=== PATIENT | male | born 1935 | race Caucasian/White ===

== ENCOUNTER 2016-12-07 20:18 | Inpatient (IN) | payer OTHER ==
[~2016-12-07] VITALS: Ht 170.2 cm; Wt 64.3 kg
[2016-12-07] MEDS ORDERED: SODIUM CHLORIDE 0.9% 1,000 ML IV ONE ×2 (20:25→21:29)
[2016-12-07] MEDS ORDERED: ONDANSETRON 2MG/ML, 2ML IVPush ONE (20:30)
[2016-12-07] MEDS ORDERED: PLEASE ENTER ALLERGIES MC SCH ×2 (20:30)
[2016-12-07] MEDS ORDERED: SODIUM CHLORIDE FLUSH 10ML SYR IVF ONE (20:30)
[2016-12-07] MEDS ORDERED: SODIUM CHLORIDE 0.9% 1,000ML IVBOLUS ONE (20:30)
[2016-12-07] MEDS ORDERED: ONDANSETRON 2MG/ML, 2ML ONE (20:33)
[2016-12-07 20:44] LABS: HEMATOCRIT 49.5 % (39.2-51.8); HEMOGLOBIN 16.5 g/dL (13.7-18.0)
[2016-12-07 20:54] LABS: ASPARTATE AMINO TRANSFERASE 16 U/L (15-37); BLOOD UREA NITROGEN 19 mg/dL (7-18)
[2016-12-07] MEDS ORDERED: LOSA25TA5 PO (20:56)
[2016-12-07] MEDS ORDERED: ASPI-496 PO (20:56)
[2016-12-07 21:00] LABS: IS PT STATUS REG ER OR PRE ER? YES
[2016-12-07] MEDS ORDERED: BACITRACIN ZINC OINT 500U/GM, 0.9 GM ONE (21:14)
[2016-12-07] MEDS ORDERED: SODIUM CHLORIDE FLUSH 10ML SYR IVF PRN (21:30)
[2016-12-07] MEDS ORDERED: POTASSIUM CHLORIDE 20 MEQ TAB.ER.PRT PO ONE (22:00)
[2016-12-07] MEDS ORDERED: CEFAZOLIN PMX 1GM/50ML 50 ML IVPB ONE (22:00)
[2016-12-07] MEDS ORDERED: DOCUSATE 100 MG CAPSULE PO PRN (22:30)
[2016-12-07] MEDS ORDERED: ONDANSETRON ODT 4 MG PO PRN (22:30)
[2016-12-07] MEDS ORDERED: TEMAZEPAM 15 MG CAPSULE PO PRN (22:30)
[2016-12-07] MEDS ORDERED: HYDROcodone/APAP 5/325 TABLET PO PRN (22:30)
[2016-12-07 22:46] VITALS: BP 149/75
[2016-12-07] MEDS: NICOTINE 14MG/24 HR PATCH.TD24 TD SCH (23:29)
[2016-12-07] MEDS: SODIUM CHLORIDE 0.9% 1,000 ML IV SCH (23:30)
[2016-12-07] MEDS: AMLODIPINE 5 MG TABLET PO SCH (23:30)
[2016-12-08 01:42] VITALS: BP 132/64
[2016-12-08] MEDS: SODIUM CHLORIDE 0.9% 1,000 ML IV SCH ×4 (06:18→16:46)
[2016-12-08] MEDS: ACETAMINOPHEN 325 MG TABLET PO PRN ×3 (06:27→21:20)
[2016-12-08 08:04] VITALS: BP 146/68
[2016-12-08] MEDS: AMLODIPINE 5 MG TABLET PO SCH (08:06)
[2016-12-08] MEDS ORDERED: CEFAZOLIN PMX 1GM/50ML 50 ML ONE (09:23)
[2016-12-08] MEDS ORDERED: FENTANYL PF 100 MCG/2ML ONE (09:23)
[2016-12-08] MEDS ORDERED: LIDOCAINE 2%, 20ML ONE (09:23)
[2016-12-08] MEDS ORDERED: MIDAZOLAM 1 MG/ML, 5ML ONE (09:23)
[2016-12-08] MEDS ORDERED: CEFAZOLIN 1,000 MG ONE (09:24)
[2016-12-08] MEDS ORDERED: ZOLPIDEM 5MG TABLET PO PRN (10:30)
[2016-12-08] MEDS ORDERED: HYDROcodone/APAP 5/325 TABLET PO PRN (10:30)
[2016-12-08 12:02] LABS: BLOOD UREA NITROGEN 13 mg/dL (7-18); HEMATOCRIT 45.5 % (39.2-51.8); HEMOGLOBIN 15.1 g/dL (13.7-18.0)
[2016-12-08 13:12] VITALS: BP 119/62
[2016-12-08] MEDS: CEFAZOLIN PMX 1GM/50ML 50 ML IVPB SCH (16:46)
[2016-12-08 19:59] VITALS: BP 124/72
[2016-12-08] MEDS: NICOTINE 14MG/24 HR PATCH.TD24 TD SCH (21:20)
[2016-12-08] MEDS: SODIUM CHLORIDE FLUSH 10ML SYR IVF SCH (21:21)
[2016-12-09] MEDS: SODIUM CHLORIDE 0.9% 1,000 ML IV SCH ×3 (01:01→10:00)
[2016-12-09 01:31] VITALS: BP 155/78
[2016-12-09] MEDS: CEFAZOLIN PMX 1GM/50ML 50 ML IVPB SCH (02:09)
[2016-12-09 07:35] VITALS: BP 177/82
[2016-12-09] MEDS: AMLODIPINE 5 MG TABLET PO SCH (08:31)
[2016-12-09] MEDS: SODIUM CHLORIDE FLUSH 10ML SYR IVF SCH (08:31)
[2016-12-09] MEDS: ACETAMINOPHEN 325 MG TABLET PO PRN (08:45)
[2016-12-09] MEDS ORDERED: ATOR20TA9 PO (11:43)
[2016-12-09] MEDS ORDERED: AMLO5TAB2 PO (11:43)
== END 2016-12-09 14:14 | disposition home or self-care (01) | DRG 242 ==
LOC: ED 21:31 → EDIP 21:45 → 5SO 22:34 → DCLOUNGE 12-09 13:50
PROVIDERS: ADMIT Hospitalist; ATTEND Hospitalist
PROC: 02H63JZ Insertion of Pacemaker Lead into Right Atrium, Percutaneous Approach (ICD-10-PCS; principal; 2016-12-08)
PROC: 02HK3JZ Insertion of Pacemaker Lead into Right Ventricle, Percutaneous Approach (ICD-10-PCS; 2016-12-08)
PROC: 0JH606Z Insertion of Pacemaker, Dual Chamber into Chest Subcutaneous Tissue and Fascia, Open Approach (ICD-10-PCS; 2016-12-08)
DX: I44.1 Atrioventricular block, second degree (principal); N17.0 Acute kidney failure with tubular necrosis; I11.9 Hypertensive heart disease without heart failure; I10 Essential (primary) hypertension; H35.30 Unspecified macular degeneration; S01.91XA Laceration without foreign body of unspecified part of head, initial encounter; W07.XXXA Fall from chair, initial encounter; S09.90XA Unspecified injury of head, initial encounter; I65.21 Occlusion and stenosis of right carotid artery; J44.9 Chronic obstructive pulmonary disease, unspecified; E74.39 Other disorders of intestinal carbohydrate absorption; F17.210 Nicotine dependence, cigarettes, uncomplicated; I45.10 Unspecified right bundle-branch block; I48.91 Unspecified atrial fibrillation; I73.9 Peripheral vascular disease, unspecified; R32 Unspecified urinary incontinence; Z83.3 Family history of diabetes mellitus; Z95.0 Presence of cardiac pacemaker; Y93.89 Activity, other specified; Y99.8 Other external cause status
CPT/HCPCS: 33208; 36415; 70450; 71010; 80048; 80053; 81003; 83036; 83605; 83880; 84439; 84443; 84481; 84484; 85025; 85610; 85730; 93005; 93306; 93880; 96361; 96374; 99156; 99157; C1779; C1785; C1892; J0690; J2250; J2405; J3010; J3490; J7030

== ENCOUNTER → 2016-12-17 | Outpatient (CLI) | payer OTHER ==
[~2016-12-17] MED LIST: AMLO5TAB2 PO; ASPI-496 PO; ATOR-2 PO; ATOR20TA9 PO; LOSA25TA5 PO; OMEP-110 PO; VIT1TABL32 PO
== END | disposition home or self-care (01) ==
LOC: CFH 11:08
PROVIDERS: ATTEND Internal Medicine Cardiovascular Disease
DX: Z95.0 Presence of cardiac pacemaker (principal)
CPT/HCPCS: 71020

== ENCOUNTER 2016-12-19 09:11 | Observation (INO) | payer OTHER ==
[~2016-12-19] VITALS: Ht 170.2 cm; Wt 66.0 kg
[~2016-12-19 09:11] MED LIST changes: -ATOR-2 PO; -OMEP-110 PO; -VIT1TABL32 PO
[2016-12-19] MEDS: SODIUM CHLORIDE 0.9% 1,000 ML IV SCH ×2 (12:09→20:09)
[2016-12-19 12:17] VITALS: BP 149/80
[2016-12-19] MEDS ORDERED: VIT1TABL32 PO (12:21)
[2016-12-19] MEDS ORDERED: OMEP-110 PO (12:21)
[2016-12-19] MEDS ORDERED: AMLO5TAB2 PO (12:27)
[2016-12-19] MEDS ORDERED: ATOR-2 PO (12:27)
[2016-12-19 12:28] LABS: HEMATOCRIT 49.3 % (39.2-51.8); HEMOGLOBIN 16.7 g/dL (13.7-18.0)
[2016-12-19] MEDS ORDERED: CEFAZOLIN PMX 1GM/50ML 50 ML IVPB ONE (12:30)
[2016-12-19 12:38] LABS: BLOOD UREA NITROGEN 15 mg/dL (7-18)
[2016-12-19] MEDS ORDERED: CEFAZOLIN 1,000 MG ONE ×2 (12:46→12:47)
[2016-12-19] MEDS ORDERED: FENTANYL PF 100 MCG/2ML ONE (12:46)
[2016-12-19] MEDS ORDERED: MIDAZOLAM 1 MG/ML, 5ML ONE (12:46)
[2016-12-19] MEDS ORDERED: CEFAZOLIN PMX 1GM/50ML 50 ML ONE (12:46)
[2016-12-19] MEDS ORDERED: LIDOCAINE 2%, 20ML ONE (12:46)
[2016-12-19] MEDS ORDERED: HYDROcodone/APAP 5/325 TABLET PO PRN (14:00)
[2016-12-19 14:15] VITALS: BP 133/75
[2016-12-19] MEDS ORDERED: CEFAZOLIN PMX 1GM/50ML 50 ML IVPB SCH (16:00)
[2016-12-19 20:56] VITALS: BP 143/79
[2016-12-19] MEDS: SODIUM CHLORIDE FLUSH 10ML SYR IVF SCH (20:59)
[2016-12-19] MEDS ORDERED: ATORVASTATIN 20 MG TABLET PO SCH (21:00)
[2016-12-19] MEDS ORDERED: ASPIRIN 81 MG TABLET EC PO SCH (21:00)
[2016-12-19] MEDS ORDERED: ATORVASTATIN 80 MG TABLET PO SCH (21:00)
[2016-12-19] MEDS: CEFAZOLIN PMX 1GM/50ML 50 ML IVPB SCH (21:04)
[2016-12-20] VITALS: BP 132/74
[2016-12-20] MEDS: SODIUM CHLORIDE 0.9% 1,000 ML IV SCH ×2 (01:37→09:08)
[2016-12-20] MEDS: CEFAZOLIN PMX 1GM/50ML 50 ML IVPB SCH (08:10)
[2016-12-20] MEDS ORDERED: OMEPRAZOLE 20 MG CAPSULE.DR PO SCH (09:00)
[2016-12-20] MEDS ORDERED: AMLODIPINE 5 MG TABLET PO SCH (09:00)
[2016-12-20] MEDS: SODIUM CHLORIDE FLUSH 10ML SYR IVF SCH (09:07)
[2016-12-20 09:09] VITALS: BP 152/78
[2016-12-21] MEDS ORDERED: MULTIVITAMINS/MINERALS TABLET PO SCH (09:00)
== END 2016-12-20 12:36 | disposition home or self-care (01) ==
LOC: CACL 09:11 → ORIP 13:36 → 5SO 14:27
PROVIDERS: ADMIT Internal Medicine Cardiovascular Disease; ATTEND Internal Medicine Cardiovascular Disease
DX: T82.120A Displacement of cardiac electrode, initial encounter (principal); I44.1 Atrioventricular block, second degree; J44.9 Chronic obstructive pulmonary disease, unspecified; I10 Essential (primary) hypertension; Y71.2 Prosthetic and other implants, materials and accessory cardiovascular devices associated with adverse incidents; Y92.89 Other specified places as the place of occurrence of the external cause
CPT/HCPCS: 33215; 36415; 71010; 80048; 85025; 85610; 96365; 96375; 99156; G0378; J0690; J2250; J3010; J3490

== ENCOUNTER 2017-06-09 13:45 | Emergency (ER) | payer OTHER ==
[~2017-06-09] VITALS: Ht 170.2 cm; Wt 63.7 kg
[~2017-06-09 13:45] MED LIST changes: +ATOR-2 PO; +OMEP-110 PO; +VIT1TABL32 PO
[2017-06-09 15:29] LABS: BASOPHILS # (AUTO) 0.05 x10^3/uL (0-0.1); BASOPHILS % (AUTO) 1 % (0-1); EOSINOPHILS # (AUTO) 0.24 x10^3/uL (0-0.4); EOSINOPHILS % (AUTO) 4 % (1-7); LYMPHOCYTES # (AUTO) 0.88 x10^3/uL (1-3.4); LYMPHOCYTES % (AUTO) 14 % (22-44); MD NO; MEAN CORPUSCULAR HGB CONC 33.7 g/dL (33.2-36.2); MEAN CORPUSCULAR VOLUME 94.8 fL (81-97); MEAN PLATELET VOLUME 9.3 fL (7.4-10.4); MONOCYTES # (AUTO) 0.52 x10^3/uL (0.2-0.8); MONOCYTES % (AUTO) 8 % (2-9); NEUTROPHILS # (AUTO) 4.46 x10^3/uL (1.8-6.8); NEUTROPHILS % (AUTO) 73 % (42-75); PLATELET COUNT 144 x10^3/uL (130-400); RED BLOOD COUNT 4.84 x10^6/uL (4.38-5.82); RED CELL DISTRIBUTION WIDTH 14.1 % (9.4-14.8)
[2017-06-09 15:32] LABS: ALBUMIN 3.6 g/dL (3.4-5.0); ANION GAP 6 mmol/L (5-15); CALCIUM 9.2 mg/dL (8.5-10.1); CHLORIDE 108 mmol/L (98-107); CREATININE 1.36 mg/dL (0.7-1.3)
[2017-06-09 15:37] LABS: MICROSCOPIC AUTO
[2017-06-09 15:38] LABS: CULTURE INDICATED? NO
[2017-06-09] MEDS ORDERED: SODIUM CHLORIDE FLUSH 10ML SYR IVF ONE (17:00)
[2017-06-09] MEDS ORDERED: OMNIPAQUE 350 MG/ML, 100ML BOTTLE ONE (17:50)
[2017-06-09 18:11] VITALS: BP 159/81
== END 2017-06-09 19:10 | disposition home or self-care (01) ==
LOC: ED 18:46
DX: M54.6 Pain in thoracic spine (principal); Z21 Asymptomatic human immunodeficiency virus [HIV] infection status; E78.00 Pure hypercholesterolemia, unspecified; I10 Essential (primary) hypertension; K21.9 Gastro-esophageal reflux disease without esophagitis; Z95.0 Presence of cardiac pacemaker
CPT/HCPCS: 36415; 71046; 71275; 74175; 80048; 81001; 82040; 85025; 93005; 99285; Q9967

== ENCOUNTER 2017-06-22 11:04 | Observation (INO) | payer OTHER ==
[~2017-06-22] VITALS: Ht 170.2 cm; Wt 61.0 kg
[2017-06-22] MEDS ORDERED: METOPROLOL 1 MG/ML, 5ML IVPush PRN (12:00)
[2017-06-22] MEDS ORDERED: SODIUM CHLORIDE FLUSH 10ML SYR IVF ONE (12:00)
[2017-06-22] MEDS ORDERED: ASPIRIN 81 MG TABLET CHEW PO ONE (12:00)
[2017-06-22 12:22] LABS: BASOPHILS # (AUTO) 0.02 x10^3/uL (0-0.1); BASOPHILS % (AUTO) 0 % (0-1); EOSINOPHILS # (AUTO) 0.19 x10^3/uL (0-0.4); EOSINOPHILS % (AUTO) 3 % (1-7); LYMPHOCYTES # (AUTO) 0.83 x10^3/uL (1-3.4); LYMPHOCYTES % (AUTO) 13 % (22-44); MD NO; MEAN CORPUSCULAR HEMOGLOBIN 31.8 pg (27.5-34.5); MEAN CORPUSCULAR HGB CONC 33.4 g/dL (33.2-36.2); MEAN CORPUSCULAR VOLUME 95.1 fL (81-97); MEAN PLATELET VOLUME 8.7 fL (7.4-10.4); MONOCYTES # (AUTO) 0.43 x10^3/uL (0.2-0.8); MONOCYTES % (AUTO) 7 % (2-9); NEUTROPHILS # (AUTO) 4.91 x10^3/uL (1.8-6.8); NEUTROPHILS % (AUTO) 77 % (42-75); PLATELET COUNT 155 x10^3/uL (130-400); RED BLOOD COUNT 5.12 x10^6/uL (4.38-5.82)
[2017-06-22 12:26] LABS: ANION GAP 6 mmol/L (5-15); CALCIUM 9.4 mg/dL (8.5-10.1); CHLORIDE 107 mmol/L (98-107)
[2017-06-22 12:31] LABS: ALANINE AMINOTRANSFERASE 15 U/L (12-78); ALKALINE PHOSPHATASE 106 U/L (45-117); CREATININE 1.22 mg/dL (0.7-1.3); TOTAL PROTEIN 7.4 g/dL (6.4-8.2); TROPONIN I < 0.015 ng/mL (0.000-0.045)
[2017-06-22] MEDS ORDERED: METOPROLOL 1 MG/ML, 5ML ONE (12:42)
[2017-06-22] MEDS ORDERED: ASPIRIN 81 MG TABLET CHEW ONE (12:43)
[2017-06-22] MEDS ORDERED: BISACODYL 10 MG SUPP PR PRN (16:30)
[2017-06-22] MEDS ORDERED: ASPIRIN 325 MG TABLET EC PO ONE (16:30)
[2017-06-22] MEDS ORDERED: ENOXAPARIN 40 MG/0.4 ML SQ SCH (16:30)
[2017-06-22] MEDS ORDERED: NITROGLYCERIN 0.4 MG BOTTLE (25 TABS) SL PRN (16:30)
[2017-06-22] MEDS ORDERED: ONDANSETRON 2MG/ML, 2ML IVPush PRN (16:30)
[2017-06-22] MEDS ORDERED: ACETAMINOPHEN 325 MG TABLET PO PRN (16:30)
[2017-06-22] MEDS ORDERED: ONDANSETRON ODT 4 MG PO PRN (16:30)
[2017-06-22] MEDS ORDERED: NICOTINE 21 MG/24 HR PATCH.TD24 TD SCH (16:30)
[2017-06-22] MEDS ORDERED: LABETALOL 5MG/ML, 20ML IVPush PRN (16:30)
[2017-06-22] MEDS ORDERED: TRAZODONE 50MG TABLET PO PRN (16:30)
[2017-06-22] MEDS ORDERED: POLYETHYLENE GLYCOL 17 GM PACKET PO PRN (16:30)
[2017-06-22 17:06] VITALS: BP 168/84
[2017-06-22 17:42] LABS: FREE T4 (FREE THYROXINE) 1.06 ng/dL (0.76-1.46); TROPONIN I < 0.015 ng/mL (0.000-0.045)
[2017-06-22 19:55] VITALS: BP 168/84
[2017-06-22] MEDS ORDERED: ASPIRIN 81 MG TABLET EC PO SCH (21:00)
[2017-06-22] MEDS ORDERED: ATORVASTATIN 20 MG TABLET PO SCH (21:00)
[2017-06-22 22:20] LABS: TROPONIN I < 0.015 ng/mL (0.000-0.045)
[2017-06-23 00:44] VITALS: BP 160/90
[2017-06-23] MEDS ORDERED: KETOROLAC 30 MG/1 ML IVPush ONE (03:30)
[2017-06-23 05:03] LABS: BASOPHILS # (AUTO) 0.03 x10^3/uL (0-0.1); BASOPHILS % (AUTO) 0 % (0-1); EOSINOPHILS # (AUTO) 0.23 x10^3/uL (0-0.4); EOSINOPHILS % (AUTO) 4 % (1-7); LYMPHOCYTES # (AUTO) 1.06 x10^3/uL (1-3.4); LYMPHOCYTES % (AUTO) 16 % (22-44); MD NO; MEAN CORPUSCULAR HEMOGLOBIN 32.1 pg (27.5-34.5); MEAN CORPUSCULAR HGB CONC 33.7 g/dL (33.2-36.2); MEAN CORPUSCULAR VOLUME 95.3 fL (81-97); MEAN PLATELET VOLUME 9.1 fL (7.4-10.4); MONOCYTES # (AUTO) 0.43 x10^3/uL (0.2-0.8); MONOCYTES % (AUTO) 7 % (2-9); NEUTROPHILS # (AUTO) 4.82 x10^3/uL (1.8-6.8); NEUTROPHILS % (AUTO) 73 % (42-75); PLATELET COUNT 146 x10^3/uL (130-400); RED BLOOD COUNT 4.92 x10^6/uL (4.38-5.82)
[2017-06-23 05:13] LABS: ANION GAP 6 mmol/L (5-15); CALCIUM 9.5 mg/dL (8.5-10.1); CHLORIDE 107 mmol/L (98-107); CREATININE 0.98 mg/dL (0.7-1.3)
[2017-06-23 05:18] LABS: CHOLESTEROL, TOTAL 99 mg/dL (140-239); HDL CHOL % 33 % (26-37); HDL CHOLESTEROL (DIRECT) 33 mg/dL (40-60); LDL CHOLESTEROL,CALCULATED 49 mg/dL (54-169); LDL/HDL RATIO 1.5 (0.5-3.0); TRIGLYCERIDES 84 mg/dL (50-200); VLDL CHOLESTEROL 17 mg/dL (0-25)
[2017-06-23 07:32] VITALS: BP 174/97
[2017-06-23] MEDS ORDERED: REGADENOSON 0.4 MG/5 ML SYRINGE ONE (08:13)
[2017-06-23] MEDS ORDERED: OMEPRAZOLE 20 MG CAPSULE.DR PO SCH (09:00)
[2017-06-23] MEDS ORDERED: AMLODIPINE 5 MG TABLET PO SCH (09:00)
[2017-06-23 12:55] VITALS: BP 165/85
[2017-06-24] MEDS ORDERED: MULTIVITAMINS/MINERALS TABLET PO SCH (09:00)
== END 2017-06-23 16:32 | disposition home or self-care (01) ==
LOC: ED 11:35 → EDIP 14:29 → 5SO 15:57 → DCLOUNGE 06-23 16:15
PROVIDERS: ADMIT Internal Medicine; ATTEND Internal Medicine
DX: M54.12 Radiculopathy, cervical region (principal); R07.9 Chest pain, unspecified; I10 Essential (primary) hypertension; I71.4 Abdominal aortic aneurysm, without rupture; J44.9 Chronic obstructive pulmonary disease, unspecified; K21.9 Gastro-esophageal reflux disease without esophagitis; I25.10 Atherosclerotic heart disease of native coronary artery without angina pectoris; Z83.3 Family history of diabetes mellitus; Z86.79 Personal history of other diseases of the circulatory system
CPT/HCPCS: 36415; 71045; 72050; 78452; 80048; 80053; 80061; 83605; 83735; 84100; 84439; 84443; 84484; 85025; 93005; 93017; 96372; 96374; 99285; A9502; C9898; G0378; J1650; J1885; J2785

== ENCOUNTER 2017-07-06 08:15 | Inpatient (IN) | payer OTHER ==
[~2017-07-06] VITALS: Ht 170.2 cm; Wt 69.8 kg
[~2017-07-06 08:15] MED LIST changes: +BUPIVACAINE/PF 0.25% ONE; +HEPARIN 1,000 UNITS/ML, 10ML ONE; +PROTAMINE SULFATE 10 MG/ML, 5ML ONE; +THROMBIN 20,000 UNIT VIAL TP ONE
[2017-07-06] MEDS ORDERED: BUPIVACAINE/PF 0.5% ONE (08:32)
[2017-07-06] MEDS ORDERED: EPINEPHRINE 1 MG/ML, 1ML ONE (08:32)
[2017-07-06] MEDS ORDERED: LACTATED RINGERS 1,000 ML IV SCH (09:33)
[2017-07-06] MEDS ORDERED: ACET-1600 PO (09:33)
[2017-07-06 09:34] VITALS: BP 164/84
[2017-07-06] MEDS ORDERED: PROMETHAZINE 25 MG/ML, 1ML IV PRN (10:00)
[2017-07-06] MEDS ORDERED: HYDROmorphone 1 MG/ML, 1ML IV PRN (10:00)
[2017-07-06] MEDS ORDERED: ACETAMINOPHEN 325 MG TABLET PO PRN ×2 (10:00→16:30)
[2017-07-06] MEDS ORDERED: FENTANYL PF 100 MCG/2ML IV PRN (10:00)
[2017-07-06] MEDS ORDERED: ONDANSETRON 2MG/ML, 2ML IVPush PRN (10:00)
[2017-07-06] MEDS ORDERED: OXYcodone 5 MG/5 ML ORAL.SOL UDC PO PRN (10:00)
[2017-07-06] MEDS ORDERED: hydrALAzine 20 MG/ML, 1ML IV PRN (10:00)
[2017-07-06] MEDS ORDERED: LABETALOL 5MG/ML, 20ML IV PRN ×2 (10:00→16:30)
[2017-07-06] MEDS ORDERED: PROMETHAZINE 12.5 MG SUPP PR PRN (10:00)
[2017-07-06] MEDS ORDERED: MEPERIDINE/PF 25MG/0.5ML IVPush PRN (10:00)
[2017-07-06] MEDS ORDERED: FENTANYL PF 250 MCG/5ML ONE (10:38)
[2017-07-06] MEDS ORDERED: NEOSTIGMINE 1 MG/ML, 10ML ONE (11:04)
[2017-07-06] MEDS ORDERED: ROCURONIUM 10MG/ML,5ML ONE (11:04)
[2017-07-06] MEDS ORDERED: CEFAZOLIN 1,000 MG ONE (11:04)
[2017-07-06] MEDS ORDERED: PHENYLEPHRINE 10 MG/ML ONE (11:04)
[2017-07-06] MEDS ORDERED: PROPOFOL 10 MG/ML, 20ML ONE (11:04)
[2017-07-06] MEDS ORDERED: GLYCOPYRROLATE 0.2MG/1ML, 5ML ONE (11:04)
[2017-07-06] MEDS ORDERED: morphine SULFATE 10 MG/ML, 1ML IV PRN (16:30)
[2017-07-06] MEDS ORDERED: POTASSIUM CHLORIDE 20 MEQ in LACTATED RINGERS 1,000 ML IV SCH (16:30)
[2017-07-06] MEDS ORDERED: ONDANSETRON ODT 4 MG PO PRN (16:30)
[2017-07-06] MEDS: HYDROcodone/APAP 5/325 TABLET PO PRN (16:36)
[2017-07-06 19:48] VITALS: BP 108/65
[2017-07-06] MEDS: CEFAZOLIN 2,000 MG in DEXTROSE 5% 50 ML IV SCH (20:00)
[2017-07-06] MEDS: ATORVASTATIN 20 MG TABLET PO SCH (20:02)
[2017-07-06] MEDS: ASPIRIN 81 MG TABLET EC PO SCH (20:02)
[2017-07-07 02:42] VITALS: BP 152/73
[2017-07-07] MEDS: CEFAZOLIN 2,000 MG in DEXTROSE 5% 50 ML IV SCH ×2 (03:44→12:41)
[2017-07-07 05:07] LABS: BASOPHILS # (AUTO) 0.03 x10^3/uL (0-0.1); BASOPHILS % (AUTO) 0 % (0-1); EOSINOPHILS % (AUTO) 1 % (1-7); LYMPHOCYTES % (AUTO) 12 % (22-44); MD NO; MEAN CORPUSCULAR HEMOGLOBIN 31.5 pg (27.5-34.5); MEAN CORPUSCULAR HGB CONC 33.2 g/dL (33.2-36.2); MEAN PLATELET VOLUME 8.6 fL (7.4-10.4); MONOCYTES # (AUTO) 0.61 x10^3/uL (0.2-0.8); MONOCYTES % (AUTO) 8 % (2-9); NEUTROPHILS % (AUTO) 79 % (42-75); PLATELET COUNT 139 x10^3/uL (130-400); RED BLOOD COUNT 3.94 x10^6/uL (4.38-5.82); RED CELL DISTRIBUTION WIDTH 13.7 % (9.4-14.8)
[2017-07-07] MEDS: HYDROcodone/APAP 5/325 TABLET PO PRN ×4 (05:09→23:15)
[2017-07-07 05:16] LABS: CHLORIDE 108 mmol/L (98-107)
[2017-07-07 05:22] LABS: ANION GAP 6 mmol/L (5-15); CALCIUM 8.6 mg/dL (8.5-10.1); CREATININE 1.43 mg/dL (0.7-1.3)
[2017-07-07 07:45] VITALS: BP 154/68
[2017-07-07] MEDS: SODIUM CHLORIDE 0.9% 1,000 ML IV SCH ×2 (09:30→23:15)
[2017-07-07] MEDS: ENOXAPARIN 40 MG/0.4 ML SQ SCH (10:54)
[2017-07-07] MEDS: OMEPRAZOLE 20 MG CAPSULE.DR PO SCH (10:54)
[2017-07-07] MEDS: AMLODIPINE 5 MG TABLET PO SCH (10:54)
[2017-07-07 13:12] VITALS: BP 157/65
[2017-07-07] MEDS: hydrALAzine 20 MG/ML, 1ML IV PRN (13:58)
[2017-07-07 17:14] VITALS: BP 135/54
[2017-07-07 19:43] VITALS: BP 130/54
[2017-07-07] MEDS: ATORVASTATIN 20 MG TABLET PO SCH (20:28)
[2017-07-07] MEDS: ASPIRIN 81 MG TABLET EC PO SCH (20:28)
[2017-07-08 02:51] VITALS: BP 150/67
[2017-07-08] MEDS: hydrALAzine 20 MG/ML, 1ML IV PRN (04:35)
[2017-07-08 05:23] LABS: ANION GAP 7 mmol/L (5-15); CALCIUM 8.2 mg/dL (8.5-10.1); CHLORIDE 108 mmol/L (98-107)
[2017-07-08 05:25] LABS: CREATININE 1.13 mg/dL (0.7-1.3)
[2017-07-08 06:31] LABS: BASOPHILS # (AUTO) 0.03 x10^3/uL (0-0.1); BASOPHILS % (AUTO) 0 % (0-1); EOSINOPHILS # (AUTO) 0.27 x10^3/uL (0-0.4); EOSINOPHILS % (AUTO) 3 % (1-7); LYMPHOCYTES # (AUTO) 0.88 x10^3/uL (1-3.4); LYMPHOCYTES % (AUTO) 9 % (22-44); MD NO; MEAN CORPUSCULAR HEMOGLOBIN 32.8 pg (27.5-34.5); MEAN CORPUSCULAR HGB CONC 34.4 g/dL (33.2-36.2); MEAN CORPUSCULAR VOLUME 95.6 fL (81-97); MONOCYTES # (AUTO) 0.84 x10^3/uL (0.2-0.8); MONOCYTES % (AUTO) 9 % (2-9); NEUTROPHILS # (AUTO) 7.29 x10^3/uL (1.8-6.8); NEUTROPHILS % (AUTO) 78 % (42-75); PLATELET COUNT 117 x10^3/uL (130-400); RED BLOOD COUNT 3.67 x10^6/uL (4.38-5.82); RED CELL DISTRIBUTION WIDTH 13.9 % (9.4-14.8)
[2017-07-08] MEDS: HYDROcodone/APAP 5/325 TABLET PO PRN ×3 (06:44→19:25)
[2017-07-08 07:10] VITALS: BP 136/65
[2017-07-08] MEDS: ENOXAPARIN 40 MG/0.4 ML SQ SCH (10:27)
[2017-07-08] MEDS: OMEPRAZOLE 20 MG CAPSULE.DR PO SCH (10:27)
[2017-07-08] MEDS: SODIUM CHLORIDE 0.9% 1,000 ML IV SCH ×2 (10:27→18:23)
[2017-07-08] MEDS: AMLODIPINE 5 MG TABLET PO SCH (10:27)
[2017-07-08 13:03] VITALS: BP 150/65
[2017-07-08 19:25] VITALS: BP 147/63
[2017-07-08] MEDS: ATORVASTATIN 20 MG TABLET PO SCH (21:24)
[2017-07-08] MEDS: ASPIRIN 81 MG TABLET EC PO SCH (21:24)
[2017-07-09 03:03] VITALS: BP 135/66
[2017-07-09] MEDS: SODIUM CHLORIDE 0.9% 1,000 ML IV SCH (03:30)
[2017-07-09] MEDS: HYDROcodone/APAP 5/325 TABLET PO PRN (04:41)
[2017-07-09 07:38] VITALS: BP 118/67
[2017-07-09] MEDS: ENOXAPARIN 40 MG/0.4 ML SQ SCH (07:44)
[2017-07-09] MEDS: OMEPRAZOLE 20 MG CAPSULE.DR PO SCH (07:45)
[2017-07-09] MEDS: AMLODIPINE 5 MG TABLET PO SCH (07:45)
[2017-07-09] MEDS ORDERED: HYDR-3240 PO (09:45)
== END 2017-07-09 10:45 | disposition home or self-care (01) | DRG 268 ==
LOC: ORIP 08:15 → EDSTATUS 10:30 → 4NOR 15:59 → DCLOUNGE 07-09 10:13
PROVIDERS: ADMIT Surgery; ATTEND Surgery
PROC: 04V03DZ Restriction of Abdominal Aorta with Intraluminal Device, Percutaneous Approach (ICD-10-PCS; 2017-07-06)
PROC: B4101ZZ Fluoroscopy of Abdominal Aorta using Low Osmolar Contrast (ICD-10-PCS; 2017-07-06)
PROC: 041K0JJ Bypass Right Femoral Artery to Left Femoral Artery with Synthetic Substitute, Open Approach (ICD-10-PCS; principal; 2017-07-06 10:30)
DX: I71.4 Abdominal aortic aneurysm, without rupture (principal); N17.0 Acute kidney failure with tubular necrosis; I74.5 Embolism and thrombosis of iliac artery; E78.5 Hyperlipidemia, unspecified; I12.9 Hypertensive chronic kidney disease with stage 1 through stage 4 chronic kidney disease, or unspecified chronic kidney disease; I65.23 Occlusion and stenosis of bilateral carotid arteries; I77.1 Stricture of artery; N18.9 Chronic kidney disease, unspecified; Z87.891 Personal history of nicotine dependence; Z95.0 Presence of cardiac pacemaker
CPT/HCPCS: 34701; 36415; 74021; 80048; 85025; 86850; 86900; 86923; J0171; J0690; J1644; J1650; J2704; J2710; J2720; J3010; J3480; J3490; C1751; C1768; C1769; C1894; C2628; J0360; J2370; J7030; J7120

== ENCOUNTER → 2017-09-17 | Outpatient (CLI) | payer OTHER ==
[~2017-09-17] MED LIST changes: +ACET-1600 PO; -BUPIVACAINE/PF 0.25% ONE; -HEPARIN 1,000 UNITS/ML, 10ML ONE; +HYDR-3240 PO; -PROTAMINE SULFATE 10 MG/ML, 5ML ONE; -THROMBIN 20,000 UNIT VIAL TP ONE
== END | disposition home or self-care (01) ==
LOC: CFH 10:51
PROVIDERS: ATTEND Surgery
DX: I71.4 Abdominal aortic aneurysm, without rupture (principal); N40.0 Benign prostatic hyperplasia without lower urinary tract symptoms; N20.0 Calculus of kidney; K80.20 Calculus of gallbladder without cholecystitis without obstruction
CPT/HCPCS: 74176; 82565

== ENCOUNTER → 2020-01-18 | Outpatient (CLI) | payer MEDICARE ==
[~2020-01-18] MED LIST changes: +AMLO-150 PO; -AMLO5TAB2 PO; +ATOR20TA37 PO; -ATOR20TA9 PO; +LOSA25TA25 PO; -LOSA25TA5 PO
== END | disposition home or self-care (01) ==
LOC: CFH 12:53
PROVIDERS: ATTEND Internal Medicine Cardiovascular Disease
DX: I08.2 Rheumatic disorders of both aortic and tricuspid valves (principal); I10 Essential (primary) hypertension; I48.0 Paroxysmal atrial fibrillation
CPT/HCPCS: 93306